=== PATIENT | male | born 1955 | race Caucasian/White ===

== ENCOUNTER → 2016-08-24 | Day surgery (SDC) | payer BC ==
[~2016-08-24] MED LIST: ASPIRIN81 M2 PO; DYMISTA NASAL S23 GM; E-200200 UNIT PO; FLONASE ALLERG9.9 ML; HYDROCHLOROTHIA25 MG PO; METOPROLOL SUCC50 MG PO; MULTIPLE VITAM1 EAC1 PO; MULTIVITAMINS1 EAC3; ZESTORETIC 20-1 EAC1 PO; ZOCOR10 MG PO
--- NOTE | ~2016-08-24 | OR ---
Unit #: [id number] #: [id number] Patient: RYLAN ESTRADA [id number] [address] [address] [id number] O MR#: [id number] NAME: RYLAN ESTRADA ROOM: Date of Procedure: 08/24/2016 Admission Date: 08/24/2016 Surgeon: Dionicio Lewis M.D. : 1955 Attending Physician: Dionicio Lewis M.D. Primary Care Physician: Keiry Mccarthy M.D. OPERATIVE REPORT PREOPERATIVE DIAGNOSES Back pain, radiculopathy, spondylolisthesis, spinal stenosis, degenerative disk disease. POSTOPERATIVE DIAGNOSES Back pain, radiculopathy, spondylolisthesis, spinal stenosis, degenerative disk disease. PROCEDURE PERFORMED Lumbar epidural steroid injection with intravenous sedation and fluoroscopic guidance for needle localization. INDICATIONS FOR PROCEDURE The patient is a 61-year-old male with several years history of back and right lower extremity pain, which is worse and is not settle with conservative treatment. Workup demonstrated severe spinal stenosis, multifactorial changes at the L3-L4 level, moderate at L4-L5 and is present at L2-L3 and L5-S1. The patient failed to settle with other conservative treatment. Plan is for trial of epidural steroids. Risks and benefits of all have been reviewed. DESCRIPTION OF PROCEDURE The patient was placed in a seated position. Standard monitors were applied. 2 mg of Versed were given for sedation and anxiolysis, which were adequate. Vital signs remained stable. Sterile prep and drape then of the lumbar area was performed. The skin then at the L3 level was localized with 1% lidocaine. An 18-gauge [employer] needle was then advanced via loss of resistance technique and fluoroscopic guidance in toward the epidural space. After confirming proper positioning with fluoroscopy and radiographic contrast, 80 mg of Depo-Medrol and 4 mL of 0.125% bupivacaine were deposited. The patient tolerated the procedure otherwise well and was discharged to the recovery room in stable condition. Dictated by... Dionicio Lewis M.D. LHP/modl TD: 08/24/2016 22:51 Unit #: [id number] #: [id number] Patient: RYLAN ESTRADA JOB #: [id number] OPERATIVE REPORT Page 1 of 1 X Dionicio Lewis MD X PROCEDURE OPERATIVE NOTE
== END | disposition home or self-care (01) ==
LOC: CCSC 07:44
DX: M51.16 Intervertebral disc disorders with radiculopathy, lumbar region (principal); M43.16 Spondylolisthesis, lumbar region; M48.06 Spinal stenosis, lumbar region
CPT/HCPCS: J1040; J2250

== ENCOUNTER → 2016-09-07 | Day surgery (SDC) | payer BC ==
--- NOTE | ~2016-09-07 | OR ---
Unit #: [id number] #: [id number] Patient: RYLAN ESTRADA [id number] [address] [place], [place] [address] [id number] O MR#: [id number] NAME: RYLAN ESTRADA ROOM: Date of Procedure: 09/07/2016 Admission Date: 09/07/2016 Surgeon: Dionicio Lewis M.D. : 1955 Attending Physician: Dionicio Lewis M.D. Primary Care Physician: Keiry Mccarthy M.D. OPERATIVE REPORT PREOPERATIVE DIAGNOSES 1. Back pain. 2. Radiculopathy. 3. Spinal stenosis. 4. Degenerative disk disease. 5. Degenerative spondylosis. POSTOPERATIVE DIAGNOSES 1. Back pain. 2. Radiculopathy. 3. Spinal stenosis. 4. Degenerative disk disease. 5. Degenerative spondylosis. PROCEDURE PERFORMED Lumbar epidural steroid injection with intravenous sedation and fluoroscopic guidance needle localization. HISTORY The patient is a 61-year-old male with several-year history of worsening back and right lower extremity pain. This significantly worsens, this has not settled with conservative measures. Workup demonstrates severe stenosis at L3-L4 and L4-L5 level. It is multifactorial. There was also some moderate left-sided protrusion at L4-L5 and right-sided L5-S1. The L3-L4 levels felt the biggest level of symptomatology. Initial epidural steroid injection 3 weeks ago resulted about 50% settling of the back pain, did not help the leg pain very much. Based on his good partial response, his pathology, and symptomatology, we are going to proceed with a second injection today. DESCRIPTION OF PROCEDURE The patient was placed in a seated position. Standard monitors were applied. Versed 2 mg were given for sedation and anxiolysis, which were adequate. Vital signs remained stable. Sterile prep and drape then of the lumbar area was performed. The skin at the L3-L4 level was localized with 1% lidocaine. An 18-gauge [employer] needle was then advanced via loss of resistance technique and fluoroscopic guidance into the epidural space. After confirming proper positioning with fluoroscopy and radiographic contrast, 80 mg of Depo-Medrol and 4 mL of 0.125% bupivacaine were deposited. The patient tolerated the procedure otherwise well and was discharged to recovery room in stable condition. Unit #: [id number] #: [id number] Patient: RYLAN ESTRADA Dictated by... Tobi Momin/batsheav TD: 09/07/2016 10:47 JOB #: [id number] OPERATIVE REPORT Page 1 of 1 X Dionicio Lewis MD X PROCEDURE OPERATIVE NOTE
== END | disposition home or self-care (01) ==
LOC: CCSC 08:03
DX: M51.17 Intervertebral disc disorders with radiculopathy, lumbosacral region (principal); M51.16 Intervertebral disc disorders with radiculopathy, lumbar region; M48.06 Spinal stenosis, lumbar region; M47.26 Other spondylosis with radiculopathy, lumbar region
CPT/HCPCS: J1040; J2250

== ENCOUNTER → 2016-09-21 | Day surgery (SDC) | payer BC ==
--- NOTE | ~2016-09-21 | OR ---
Unit #: [id number] #: [id number] Patient: RYLAN ESTRADA [id number] [address] [place], [place] [address] [id number] O MR#: [id number] NAME: RYLAN ESTRADA ROOM: Date of Procedure: 09/21/2016 Admission Date: 09/21/2016 Surgeon: Dionicio Lewis M.D. : 1955 Attending Physician: Dionicio Lewis M.D. Primary Care Physician: Keiry Mccarthy M.D. PROCEDURE OPERATIVE NOTE PREOPERATIVE DIAGNOSIS Back pain, radiculopathy, spinal stenosis, spondylolisthesis, degenerative disc disease. POSTOPERATIVE DIAGNOSIS Back pain, radiculopathy, spinal stenosis, spondylolisthesis, degenerative disc disease. PROCEDURE PERFORMED Lumbar epidural steroid injection with intravenous sedation under fluoroscopic guidance for needle localization. HISTORY This is a 61-year-old male with back and right lower extremity pain radiating to his calf. It has been worsening over the last five to six years and not settled with conservative treatment. Recently flared significantly. (1) with severe L3-4 greater than L4-5 spinal stenosis. This has worsened over time. There also is a spondylolisthesis at this level. A decision was made to give the patient a trial of epidural steroids, two of which have been done to this point, the first of which helped his back pain down to the L4-5 level. Repeat injection done at L3-4 which helped for the leg pain as well. There is some leg numbness. The burning is mostly gone and the back pain has improved. Based on his good adequate responses and continued symptomatology and pathology, we will proceed with a final injection at this point and see the patient back in several weeks time at the pain center. PROCEDURE The patient was placed in a seated position. Standard monitors were applied. 2 mg of versed were given for sedation and anxiolysis which were adequate. Vital signs remained stable. Sterile prep and drape then of the lumbar area was performed. The skin then at the L3-4 level was localized with 1% lidocaine. An 18-gauge [employer] needle was then advanced via loss of resistance technique under fluoroscopic guidance in toward the epidural space. After confirming proper positioning with fluoroscopy and radiographic contrast, a dose of 80 mg of Depo-Medrol and 4 mL of 0.25% bupivacaine were deposited. The patient tolerated the procedure otherwise well and was discharged to the recovery room in stable condition. Unit #: [id number] #: [id number] Patient: RYLAN ESTRADA Dictated by... Tobi Momin/javier TD: 09/21/2016 10:23 JOB #: [id number] PROCEDURE OPERATIVE NOTE Page 1 of 1 X Dionicio Lewis MD X PROCEDURE OPERATIVE NOTE
== END | disposition home or self-care (01) ==
LOC: CCSC 08:02
DX: M43.16 Spondylolisthesis, lumbar region (principal); M51.16 Intervertebral disc disorders with radiculopathy, lumbar region; M48.06 Spinal stenosis, lumbar region; I10 Essential (primary) hypertension; M19.90 Unspecified osteoarthritis, unspecified site
CPT/HCPCS: J1040; J2250